=== PATIENT | male | born 1985 | race Caucasian/White ===

== ENCOUNTER 2021-11-14 19:15 | Emergency (ER) | payer OTHER ==
[~2021-11-14] VITALS: Ht 172.7 cm; Wt 90.7 kg
[2021-11-14] MEDS ORDERED: ALLERGY (19:35)
== END 2021-11-15 00:27 | disposition home or self-care (01) ==
LOC: ER 19:15
DX: S63.8X2A Sprain of other part of left wrist and hand, initial encounter (principal); S43.492A Other sprain of left shoulder joint, initial encounter; V49.9XXA Car occupant (driver) (passenger) injured in unspecified traffic accident, initial encounter; Y93.9 Activity, unspecified; Y92.9 Unspecified place or not applicable; Y99.9 Unspecified external cause status; Z88.0 Allergy status to penicillin

== ENCOUNTER 2023-10-26 16:18 | Outpatient (CLI) | payer OTHER ==
[~2023-10-26 16:18] MED LIST: ALLERGY
== END 2023-10-26 17:00 | disposition home or self-care (01) ==
LOC: RAD 16:18
DX: M65.861 Other synovitis and tenosynovitis, right lower leg (principal); M65.862 Other synovitis and tenosynovitis, left lower leg

== ENCOUNTER 2023-11-08 08:37 | Outpatient (CLI) | payer OTHER | END 2023-11-08 08:48 | disposition home or self-care (01) | LOC: MRI 08:37 | PROVIDERS: ATTEND Physical Medicine & Rehabilitation | DX: M65.861 Other synovitis and tenosynovitis, right lower leg (principal); M24.561 Contracture, right knee | CPT/HCPCS: 73721 ==

== ENCOUNTER 2024-09-22 12:44 | Emergency (ER) | payer OTHER ==
[~2024-09-22] VITALS: Ht 172.7 cm; Wt 99.8 kg
[2024-09-22] MEDS ORDERED: SIMVASTATIN5 MG (13:10)
[2024-09-22] MEDS ORDERED: LORATADINE10 M1 (13:10)
[2024-09-22 14:50] LABS: HEMATOCRIT 42.3 % (39.0-48.0); HEMOGLOBIN 13.9 g/dL (13-16.00); MEAN CELL VOLUME 87.8 fL (80.0-100.00); MEAN CORPUSCULAR HEMOGLOBIN 28.9 pg (27.00-32.0); PLATELET COUNT 306 K/uL (150-450); RED BLOOD COUNT 4.82 M/uL (4.00-6.00); RED CELL DISTRIBUTION WIDTH 13.5 % (11.5-14.5)
[2024-09-22 14:57] LABS: URINE APPEARANCE Clear; URINE BILIRRUBIN Negative (NEGATIVE); URINE BLOOD Negative; URINE COLOR Yellow; URINE GLUCOSE Negative (NEGATIVE); URINE KETONE Negative (NEGATIVE); URINE LEUKOCYTE Negative; URINE NITRATE Negative; URINE PROTEIN Negative (NEGATIVE); URINE UROBILINOGEN 0.2 E.U./dl
[2024-09-22 14:59] LABS: URINE BACTERIA 4.8 uL (0.0-1933); URINE EPITHELIAL CELLS 2.9 uL (0.0-38.8); URINE WBC 6.1 uL (0.0-23.2)
[2024-09-22 15:24] LABS: URINE CAST 0.14 uL (0.0-1.40)
[2024-09-22 15:36] LABS: CALCIUM 9.3 mg/dL (8.5-10.1); CREATININE SERUM 0.66 mg/dL (0.70-1.30); GFR 135.81; POTASSIUM 4.61 mEq/L (3.5-5.1)
== END 2024-09-22 18:05 | disposition home or self-care (01) ==
LOC: ER 12:47
PROVIDERS: Emergency Medicine
DX: S90.121A Contusion of right lesser toe(s) without damage to nail, initial encounter (principal); W19.XXXA Unspecified fall, initial encounter; Y93.9 Activity, unspecified; Y92.89 Other specified places as the place of occurrence of the external cause; Y99.9 Unspecified external cause status; R55 Syncope and collapse; Z88.0 Allergy status to penicillin

== ENCOUNTER 2024-10-03 10:41 | Outpatient (CLI) | payer OTHER ==
[~2024-10-03 10:41] MED LIST changes: +LORATADINE10 M1; +SIMVASTATIN5 MG
== END 2024-10-03 13:04 | disposition home or self-care (01) ==
LOC: TOM 10:41
PROVIDERS: ATTEND Otolaryngology Otology & Neurotology
DX: H65.21 Chronic serous otitis media, right ear (principal)